=== PATIENT | female | born 1985 | race Caucasian/White ===

== ENCOUNTER 2024-04-08 09:01 | Emergency (ER) | payer BC, OTHER ==
[~2024-04-08] VITALS: Ht 172.7 cm; Wt 75.0 kg
[2024-04-08 09:04] VITALS: BP 118/91; PULSE 82; RESP 18; TEMP 97.4; O2SAT 99
[2024-04-08] MEDS: ibuprofen tablet 400 MG TABLET PO STA (10:14)
[2024-04-08] MEDS: acetaminophen 325mg tablet PO STA (10:15)
[2024-04-08] MEDS: meclizine 12.5mg tablet PO STA (10:15)
[2024-04-08] MEDS ORDERED: MECL-302 PO (11:39)
== END 2024-04-08 11:59 | disposition home or self-care (01) ==
LOC: ER 09:02
DX: S06.0X0A Concussion without loss of consciousness, initial encounter (principal); S00.93XA Contusion of unspecified part of head, initial encounter; Z88.7 Allergy status to serum and vaccine; Z88.0 Allergy status to penicillin; W22.09XA Striking against other stationary object, initial encounter; Y93.89 Activity, other specified; Y92.89 Other specified places as the place of occurrence of the external cause; Y99.8 Other external cause status
CPT/HCPCS: 70450; 72125; 99284; J8597